=== PATIENT | male | born 1990 | race Caucasian/White ===

== ENCOUNTER 2016-11-12 18:33 | Emergency (ER) | payer MEDICAID ==
[~2016-11-12] VITALS: Ht 170.2 cm; Wt 122.5 kg
[2016-11-12 18:41] VITALS: BP_SYST 127
--- NOTE | 2016-11-12 19:06 | NUR ---
Placed in room 04 . Placed on machine applicator cementer, blood pressure machine and pulse oximeter. To gown for exam. Side rails up. Report given to SABA Márquez.
--- NOTE | 2016-11-12 19:07 | NUR ---
PT. TO ER AAOx4 C/O SORE THROAT FOR 2 DAYS, SWOLLEN TONSILS, STATES THAT HE HAD FLU LIKE SYMPTOMS, PAIN 5/10, DNIES SOB, DENIES CHEST PAIN, VITALS WNL, NO OTHER COMPLAINTS
--- NOTE | 2016-11-12 19:10 | NUR ---
DR. RODRIGUEZ AT BEDSIDE EXAMINING THE PT.
[2016-11-12] MEDS ORDERED: DEXAMETHASONE SOD PHOSPHATE 10 MG/ML VIAL IM ONE (19:15)
[2016-11-12] MEDS ORDERED: PENICILLIN G BENZATHINE 1.2 MMU/2 ML SYR IM ONE (19:15)
[2016-11-12] MEDS ORDERED: KETOROLAC TROMETHAMINE 60 MG/2 ML VIAL IM ONE (19:15)
[2016-11-12 20:42] VITALS: BP_SYST 125
--- NOTE | 2016-11-12 20:42 | NUR ---
Patient given written and verbal discharge instructions and verbalizes understanding. ER MD discussed with patient the results and treatment provided. Patient in stable condition. ID arm band removed. Rx of Ibuprofen and Clobetozole given. Patient educated on pain management and to follow up with PMD. Pain Scale 0/10. Opportunity for questions provided and answered.
== END 2016-11-12 20:42 | disposition home or self-care (01) ==
LOC: SED 18:33
DX: J03.90 Acute tonsillitis, unspecified (principal)
CPT/HCPCS: 96372; 99284; J0561; J1100; J1885

== ENCOUNTER 2019-02-06 19:14 | Emergency (ER) | payer BC, MEDICAID ==
[~2019-02-06] VITALS: Ht 172.7 cm; Wt 120.2 kg
[2019-02-06 19:20] VITALS: BP_SYST 151
--- NOTE | 2019-02-06 19:26 | NUR ---
Patient to ER bed 02 for evaluation. Side rails up. Report given to Robin WALTER.
--- NOTE | 2019-02-06 19:30 | NUR ---
Pt C/O of allergic reaction, hives and redness to the body. Pt has peanut allergy and works at a [employer]. States he may possibly been in contact with peanuts during his shift. Reports taking allergy medication with no relief. Pt denies SOB, wheezing, chest pain, N/V or any other symptoms at this time. Will continue to monitor
--- NOTE | 2019-02-06 19:38 | NUR ---
ER JAQUELINE Shen at bedside examining patient.
[2019-02-06] MEDS ORDERED: methylPREDNISolone SOD SUCC/PF 62.5 MG/ML VIAL IVP ONE (19:45)
[2019-02-06] MEDS ORDERED: NACL 0.9% 1,000 ML IV ONE (19:45)
[2019-02-06] MEDS ORDERED: DIPHENHYDRAMINE INJ 50 MG/ML VIAL IVP ONE (19:45)
[2019-02-06] MEDS ORDERED: FAMOTIDINE PF 20 MG/2 ML VIAL IVP ONE (19:45)
[2019-02-06] MEDS ORDERED: EPINEPHrine 1 MG/ML AMP SUBCUT ONE (19:45)
--- NOTE | 2019-02-06 19:50 | NUR ---
# 22 gauge angiocath placed to LT upper arm. Use of asceptic technique. Opsite placed over site. Blood return noted. Blood for lab drawn from site. Flushed with 10 cc of normal saline. No evidence of infiltration noted. Patient tolerated well.
[2019-02-06] MEDS ORDERED: ONDANSETRON HCL 4 MG/2 ML VIAL IVP ONE (20:15)
[2019-02-06] MEDS ORDERED: ONDANSETRON HCL 4 MG/2 ML VIAL ONE (20:22)
--- NOTE | 2019-02-06 20:38 | NUR ---
Pt is resting quietly in bed, no SOB or acute distress noted at this time. Will continue to monitor.
--- NOTE | 2019-02-06 21:35 | NUR ---
Kimberly Shen PERSONNEL QUALITY ASSURANCE AUDITOR discussing discharge instructions and medications with patient.
[2019-02-06 21:43] VITALS: BP_SYST 151
--- NOTE | 2019-02-06 22:53 | NUR ---
Patient given written and verbal discharge instructions and verbalizes understanding. ER MD discussed with patient the results and treatment provided. Patient in stable condition. ID arm band removed. IV catheter removed intact and dressing applied, no active bleeding. Rx of Epiephrine, Pepcid, Prednisone, and Benadryl given. Patient educated on pain management and to follow up with PMD. Pain Scale 0. Opportunity for questions provided and answered. Medication side effect fact sheet provided.
== END 2019-02-06 21:43 | disposition home or self-care (01) ==
LOC: SED 19:14
DX: L50.0 Allergic urticaria (principal); R03.0 Elevated blood-pressure reading, without diagnosis of hypertension; Z91.010 Allergy to peanuts
CPT/HCPCS: 96374; 96375; 99283; J0171; J1200; J2405; J2930; J3490; J7030